=== PATIENT | male | born 1940 | race Caucasian/White ===

== ENCOUNTER 2019-02-07 05:07 | Inpatient (IN) ==
--- NOTE | 2019-01-09 10:18 | PAT Medication Instructions ---
Medication Instructions Date of Service January 09, 2019 Home Medications celecoxib [Celebrex] 200 mg PO BID glimepiride 2 mg PO QAM irbesartan 300 mg PO QPM metformin 1,000 mg PO BIDM simvastatin 20 mg PO PM ASK your surgeon for instructions celecoxib [Celebrex] 200 mg PO BID DO NOT take the morning of surgery metformin 1,000 mg PO BIDM glimepiride 2 mg PO QAM Take morning of surgery NOTHING TO EAT OR DRINK AFTER MIDNIGHT Take evening before surgery metformin 1,000 mg PO BIDM simvastatin 20 mg PO PM irbesartan 300 mg PO QPM Other Notes If you have any questions please call us at [phone] or [phone] or [phone] or [phone]
--- NOTE | 2019-01-09 10:18 | Anesthesiology Consultation ---
Date of Service January 09, 2019 Assessment & Plan (1) Encounter for pre-operative examination: - No previous anesthesia records available. Chart Review Chart Review: Pending: Refer to Additional Notes / Consult section (Patient is of acceptable risk for surgery, pending medical preoperative evaluation from PCP) and Patient seen in Pre Admission Testing Consults Requested medical (Dr. Oconnor (02/02)) Teaching & Discussion Pre-Anesthesia Teaching/Discussion Notes: Instructed NPO after midnight before surgery, except medications with 15 cc of water. Medication instructions provided according to the PAT guidelines. History Surgery Operation Date: 02/07/19 09:15 Proposed Procedures p Right Anterior Total Hip Arthroplasty - Floyd Lee, Height/Weight Height: 5 ft 9 in Weight: 92.4 kg Allergies Allergy/AdvReac Type Severity Reaction Status Date / Time No Known Allergies Allergy Verified 01/02/19 11:51 Medications Home Medications Medication Instructions Recorded Confirmed Last Taken celecoxib [Celebrex] 200 mg PO BID 01/02/19 01/02/19 Unknown glimepiride 2 mg PO QAM 01/02/19 01/02/19 Unknown irbesartan 300 mg PO QPM 01/02/19 01/02/19 Unknown metformin 1,000 mg PO BIDM 01/02/19 01/02/19 Unknown simvastatin 20 mg PO PM 01/02/19 01/02/19 Unknown Past Medical History Medical History Cataract BOTH EYES Diabetes mellitus, type 2 Diabetic retinal edema BOTH EYES Hyperlipidemia Hypertension Osteoarthritis Exercise / Class Metabolic Activity II 4-5 Yardwork/Stairs/Walk up hill (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 Denies CP or SOB. ) Past Surgical History Surgical History Hx of hernia repair RIGHT INGUINAL Past Anesthesia History No Hx of Anesthesia Complications and No Family Hx of Anesthesia Complications History of PONV No Hx of PONV and No Hx of Motion Sickness Social History Smoking Status: Never smoker Do You Dip or Chew Tobacco: No Hx Alcohol Use: No Hx Substance Use: No Review of Systems Patient denies chest pain, shortness of breath, dyspnea on exertion, reflux, cough, wheezing, palpitations. +Joint Pain (Hip) Physical Exam Vital Signs BP: 170/77 - patient is anxious and forgot to take BP meds last night P: 65 R: 18 T: 98.0 SPO2: 96% on RA ENMT Mouth: + poor dentition Thyromental Distance: > or= 3.5 Finger Breadths (3.5) Mallampati Class: I Neck normal visual inspection; neck extension not limited Respiratory normal respiratory effort Auscultation: lungs clear to auscultation bilaterally Cardiovascular Rate/Rhythm: regular rate and regular rhythm Heart Sounds: no murmur Vessels: + carotid bruit (? carotid on right) Neurologic moves all extremities Psychiatric Orientation: alert and oriented x 3 Testing Laboratory Results 01/09/19 11:25 01/09/19 11:25 PT 10.2 Seconds (9.0-12.0) 01/09/19 11:25 INR 1.0 (0.9-1.1) 01/09/19 11:25 APTT 26.5 Seconds (21.0-31.0) 01/09/19 11:25 Hemoglobin A1c 6.8 % (4.5-5.6) H 01/09/19 11:25 Urine Color Yellow 01/09/19 11:25 Urine Appearance Clear (Clear) 01/09/19 11:25 Urine pH 5.0 (4.5-7.5) 01/09/19 11:25 Ur Specific Hoyt 1.020 (1.000-1.030) 01/09/19 11:25 Urine Protein 1+ (Negative) H 01/09/19 11:25 Urine Glucose (UA) Negative (Negative) 01/09/19 11:25 Urine Ketones Trace (Negative) H 01/09/19 11:25 Urine Nitrite Negative (Negative) 01/09/19 11:25 Ur Leukocyte Esterase Negative (Negative) 01/09/19 11:25 Urine WBC (Auto) 1-5 /hpf (0-5) 01/09/19 11:25 Urine RBC (Auto) 0-4 /hpf (0-4) 01/09/19 11:25 U Hyaline Cast (Auto) 0 /lpf (0-5) 01/09/19 11:25 U Epithel Cells (Auto) 5-10 /lpf (0-5) H 01/09/19 11:25 Urine Bacteria (Auto) Negative (Negative) 01/09/19 11:25 Blood Type O Positive 01/09/19 11:25 Antibody Screen NEGATIVE 01/09/19 11:25 Electrocardiogram Date: 01/09/19 Findings: + NSR @ (78) Chest X-Ray Date: 01/09/19 Findings: + NAD
--- NOTE | 2019-01-09 11:56 | XRay Report ---
XR chest Pre-admission PA/Lat HISTORY: Preop. COMPARISON: None. FINDINGS: A few small linear densities within the right middle lobe and lingula suggesting scarring o r atelectasis. Otherwise, the lungs are clear. No pleural effusions. No pneumothorax. The heart is no rmal in size. IMPRESSION: No acute process. Electronically signed by: Junaid Peguero M.D. 01/09/2019 11:55 AM
[2019-01-09 12:56] LABS: Basophils # (auto) 0.04 K/uL (0-0.2); Basophils % (auto) 0.4 %; Eosinophils # (auto) 0.12 K/uL (0-0.5); Eosinophils % (auto) 1.3 %; Hematocrit (blood only) 34.1 % (42-52); Hemoglobin 11.4 g/dL (14.0-18.0); Immature Granulocytes # (auto) 0.03 K/uL (0.00-0.02); Immature Granulocytes % (auto) 0.3 %; Lymphocytes # (auto) 2.38 K/uL (1.2-3.4); Lymphocytes % (auto) 26.4 %; Mean Corpuscular Hemoglobin 30.6 pg (25-34); Mean Corpuscular Hgb Conc 33.4 g/dL (32-36); Mean Corpuscular Volume 91.4 fL (80-100); Monocytes # (auto) 1.25 K/uL (0.11-0.59); Monocytes % (auto) 13.8 %; Neutrophils # (auto) 5.21 K/uL (1.4-6.5); Neutrophils % (auto) 57.8 %; Platelet Count 289 K/uL (130-400); RDW Coefficient of Variation 13.3 % (11.5-14.5); RDW Standard Deviation 44.3 fL (36.4-46.3); Red Blood Count 3.73 M/uL (4.7-6.1); White Blood Count 9.03 K/uL (4.8-10.8)
[2019-01-09 13:09] LABS: Partial Thromboplastin Time 26.5 Seconds (21.0-31.0); Prothrombin Time 10.2 Seconds (9.0-12.0)
[2019-01-09 13:15] LABS: Albumin Level 4.2 gm/dl (3.4-5.0); BUN Creatinine Ratio 17.7 (10-20); Calcium 9.4 mg/dl (8.5-10.1); Creatinine Clr Calc Pharmacy 56.9 ml/min; Est GFR (Non-African American) 56.1; Potassium 4.4 mmol/L (3.5-5.1)
[2019-01-09 13:16] LABS: Estimated Average Glucose 148 mg/dl; Hemoglobin A1C 6.8 % (4.5-5.6)
[2019-01-09 13:20] LABS: Appearance Urine Clear (Clear); Bacteria Urine Automated Negative (Negative); Bilirubin Urine Negative (Negative); Blood Urine Negative (Negative); Cast Urine Automated 0 /lpf (0-5); Color Urine Yellow; Glucose Urine UA Negative (Negative); Ketones Urine Trace (Negative); Leukocyte Esterase Urine Negative (Negative); Nitrite Urine Negative (Negative); Protein Urine 1+ (Negative); RBC Urine Automated 0-4 /hpf (0-4); Urobilinogen Urine Negative (Negative)
--- NOTE | 2019-02-06 13:34 | History & Physical Report ---
Date of Service February 06, 2019 Assessment & Plan (1) Degenerative joint disease of right hip: I have indicated the patient for right anterior total hip replacement. The risks, benefits and complications of surgery were explained to the patient which include but not limited to infection, acute blood loss, DVT/PE, injury to nerves, vessels, bone, soft tissue, arthrofibrosis, chronic pain, failure of the prosthesis, hip dislocation, leg length discrepancy, need for additional surgery, cardiac and pulmonary events and . The patient wished to proceed with surgery and informed consent was obtained at this time. We will plan for 81mg ASA BID post-operatively for DVT prophylaxis. Upon discharge the patient will be discharged home with home health services. Appropriate clearances by PCP were obtained. History of Present Illness Chief Complaint: Right hip pain/djd Primary Care Provider: Armin Oconnor MD The patient is a 78 year old male who presents with complaints of severe right hip pain and DJD. The patient has failed outpatient conservative treatments to this point which included NSAIDs, IA corticosteroid inj, home exercise/walking program. The patient's pain and limited function have progressed to the point where they severely hinder their activities of daily living and they no longer tolerate exercise programs. They are requesting to proceed with total hip replacement surgery. Allergies Allergy/AdvReac Type Severity Reaction Status Date / Time No Known Allergies Allergy Verified 02/07/19 05:31 Home Medications Home Medications Medication Instructions Recorded Confirmed Type celecoxib [Celebrex] 200 mg PO BID 01/02/19 02/07/19 History glimepiride 2 mg PO QAM 01/02/19 02/07/19 History irbesartan 300 mg PO QPM 01/02/19 02/07/19 History metformin 1,000 mg PO BIDM 01/02/19 02/07/19 History simvastatin 20 mg PO PM 01/02/19 02/07/19 History Past Med/Surg History Medical History Cataract BOTH EYES Diabetes mellitus, type 2 Diabetic retinal edema BOTH EYES Hyperlipidemia Hypertension Osteoarthritis Surgical History Hx of hernia repair RIGHT INGUINAL Social History Preferred Language: Greenlandic Communication Ability: Effective Beliefs That Will Affect Care: None Current Living Situation: Alone Feels Safe at Home: Yes Safety Concerns: Feels Safe At This Time Smoking Status: Never smoker Do You Dip or Chew Tobacco: No ; Second Hand Expos ure: No ; Hx Alcohol Use: No Hx Substance Use: No Review of Systems Review of Systems: All systems reviewed & are unremarkable except as noted in HPI & below Constitutional: as per Subjective / HPI Physical Exam Physical Exam: RLE NVSI +EHL/FHL/TA/GS SILT grossly, +2 DP pulse, compartments soft NT, limited painful ROM of the hip, antalgic gait. Constitutional: WD/WN, vitals as above Eyes: PERRL, conjunctivae normal, anicteric sclerae ENMT: external ear and nose normal, oropharynx normal Neck: trachea midline, no thyromegaly Respiratory: normal respiratory effort, lungs clear to auscultation Cardiovascular: RRR, no murmur, no edema Gastrointestinal (Abdomen): normal bowel sounds, soft, nontender, no hepatosplenomegaly Musculoskeletal: no cyanosis or clubbing, extremities motor strength 5/5 Skin: no rashes, warm and dry Neurologic: patellar DTR's 2+ bilat, sensation intact Psychiatric: A+Ox3, euthymic affect Lymphatic: no cervical or axillary lymphadenopathy Results & Data Diagnostic Findings Multiple views of the hip demonstrates severe DJD with complete loss of the joint space. +osteophytes, +sclerosis, +subchondral cysts.
[2019-02-07] MEDS ORDERED: CEFAZOLIN 2000MG 2,000 MG/15 ML SYR IV SCH (06:00)
[2019-02-07] MEDS ORDERED: ROPIVACAINE 0.5% HCL/PF 150 MG, BUPIVACAINE 0.5% MPF 30 ML, EPINEPHrine 30MG/30ML (OR U... INSTIL SCH (06:00)
[2019-02-07] MEDS ORDERED: METOCLOPRAMIDE HCL 10 MG TABLET PO SCH (06:00)
[2019-02-07] MEDS ORDERED: GABAPENTIN 300 MG CAP PO SCH (06:00)
[2019-02-07] MEDS ORDERED: dexAMETHasone 4 MG TAB PO SCH (06:00)
[2019-02-07] MEDS ORDERED: LR 500ML BOLUS, THEN 15ML/HR IV SCH (06:00)
[2019-02-07] MEDS ORDERED: FAMOTIDINE 20 MG TAB PO SCH (06:00)
[2019-02-07] MEDS ORDERED: ACETAMINOPHEN 500 MG TAB PO SCH (06:00)
[2019-02-07] MEDS ORDERED: CeleBREX 200 MG CAP PO SCH (06:00)
[2019-02-07] MEDS ORDERED: BUPIVACAINE 0.5 % 5 MG/1 ML PF 10ML VIAL ONE (06:24)
[2019-02-07] MEDS ORDERED: fentaNYL citrate 100 MCG/2 ML VIAL ONE (06:48)
[2019-02-07] MEDS ORDERED: MIDAZOLAM HCL 1 MG/ML 2ML VIAL ONE (06:48)
[2019-02-07] MEDS ORDERED: KETOROLAC 30 MG/ML VIAL IV PRN (06:56)
[2019-02-07] MEDS ORDERED: ATROPINE SULFATE 0.1 MG/ML 10ML SYR IV PRN (06:56)
[2019-02-07] MEDS ORDERED: BACITRACIN INJ 50,000 UNIT VIAL ONE (06:56)
[2019-02-07] MEDS ORDERED: ORTHO JOINT ANESTHETIC ONE (06:56)
[2019-02-07] MEDS ORDERED: ONDANSETRON INJ 2 MG/ML 2 ML VIAL IV PRN ×2 (06:56→10:59)
[2019-02-07] MEDS ORDERED: PHENYLEPHRINE 100MCG/ML 5ML SYR IV PRN (06:56)
[2019-02-07] MEDS ORDERED: HYDROmorphone INJ 1 MG/ML SYRINGE IV PRN (06:56)
[2019-02-07] MEDS ORDERED: ePHEDrine sulfate 50 MG/ML AMP IV PRN (06:56)
--- NOTE | 2019-02-07 07:06 | History & Physical Bridge Note ---
Date of Service February 07, 2019 History & Physical Bridge Note I have examined the patient, reviewed the History & Physical and in the interval since the performance of the History & Physical I have noted the following changes of clinical significance: no changes noted
[2019-02-07] MEDS ORDERED: TRANEXAMIC ACID 1,000 MG in 0.9 % SODIUM CHLORIDE 100 ML IV ONE (07:45)
[2019-02-07] MEDS ORDERED: PROPOFOL IV EMULSION 10 MG/ML 20 ML VIAL IV ONE (08:53)
[2019-02-07] MEDS ORDERED: LIDOCAINE HCL 2% 2 ML VIAL/AMP(20MG/ML) INFIL ONE (08:53)
--- NOTE | 2019-02-07 09:02 | Post Operative Brief Note ---
Immediate Post Op Note v1 Date of Surgery February 07, 2019 Pre & Post Diagnosis Operation Date: 02/07/19 07:15 Pre-Op Diagnosis: RIGHT HIP OSTEOARTHRITIS Post-Op Diagnosis: RIGHT HIP OSTEOARTHRITIS Procedure Operation Date: 02/07/19 07:15 Actual Procedures p Right Anterior Total Hip Arthroplasty(Right) - Floyd Lee DO Surgeon Floyd Lee DO Cut Off Worker Cristhian Mosquera Estimated Blood Loss 225 Findings Consistent with Post-Op Diagnosis Fluids 1500 cc LR Specimens femoral head Drains Hemovac Drain Anesthesia Type Spinal MAC Complications none Disposition Disposition: Recovery Room Overlapping Procedure I was present for: the critical portions of procedure. I was immediately available: during the entire case. Back up surgeon: was not required during procedure.
--- NOTE | 2019-02-07 09:06 | Fluoroscopy Report ---
FL hip RT 1V CLINICAL HISTORY: RIGHT ANTERIOR HIP COMPARISON STUDY: None. FLUOROSCOPY TIME: 48 seconds. FLUOROSCOPIC IMAGES: 2. FINDINGS: These images demonstrate anatomic alignment of the total right hip arthroplasty with acetab ular screw. No fracture is identified. There are no unexpected radiopaque foreign bodies. IMPRESSION: Expected findings during total right hip arthroplasty. Electronically signed by: Marcus Kiran M.D. 02/07/2019 9:05 AM
--- NOTE | 2019-02-07 09:27 | Operative Report ---
Post Operative Report Pre & Post Diagnosis Operation Date: 02/07/19 07:15 Pre-Op Diagnosis: RIGHT HIP OSTEOARTHRITIS Post-Op Diagnosis: RIGHT HIP OSTEOARTHRITIS Procedure Operation Date: 02/07/19 07:15 Actual Procedures p Right Anterior Total Hip Arthroplasty(Right) - Floyd Lee DO Surgeon Floyd Lee DO Clinical Informatics Educator Cristhian Mosquera Estimated Blood Loss 225 Findings Consistent with Post-Op Diagnosis Fluids 1500 cc LR Specimens Femoral head Anesthesia Type Spinal MAC Disposition Disposition: Recovery Room Indications The patient is a 72-year-old male who presents with severe progressive right hip DJD who has failed outpatient conservative treatments. I indicated the patient for a anterior total hip replacement and the risks and benefits were explained in detail which include but not limited to infection, bleeding, blood clot, damage to surrounding bone, nerves, vessels, soft tissue, hip dislocation, failure of the prosthesis, leg length discrepancy, need for additional surgery and . The patient agreed to proceed with replacement of the hip and informed consent was obtained. Appropriate clearances were obtained. Description of Procedure COMPONENTS USED: Torres & NephEpoqueology hip system: Acetabulum size 54, femur size 6 standard offset, femoral head 36+0, liner 3654, acetabular screw 25 mm x 1. DESCRIPTION OF PROCEDURE: Following satisfactory spinal anesthesia, the patient was placed supine on the OR table. The left leg was placed in the well leg james and the right leg in the traction device. The right leg was prepared with ChloraPrep and draped sterilely. A surgical timeout was performed, patient identified and site chris verified. Appropriate antibiotics were given. A standard anterior approach in the interval between the sartorius and tensor muscles was performed. Dissection was carried down through subcutaneous tissues. Electrocautery was utilized for hemostasis. Circumflex femoral vessels were identified, tied and ligated. The anterior capsular fat pad was removed and the capsulotomy was performed revealing the arthritic femoral neck and head. A femoral neck cut was made with reciprocating saw and the bone fragments removed. The acetabular self-retraining retractor was placed. Acetabular reaming was completed under fluoroscopic guidance, a 54 shell was impacted into an anatomic position and secured with a dome screw. Local anesthetic was placed and following irrigation, the polyethylene liner was placed. The femur was placed into position of external rotation, extension and adduction. Femoral canal was prepared up to the size 6 standard offset. Trial reduction with a +0 neck length head showed good soft tissue tension, leg lengths restored, and good fit and fill of the proximal canal using fluoroscopic landmarks. The hip was dislocated. The trial component was removed. The final implant was placed. The hip was irrigated with sterile saline solution and reduced. A Betadine soak was performed. After 3 minutes, the hip was once more irrigated with copious sterile saline solution with bacitracin. Janet-incisional soft tissue was injected utilizing [place] Orthomix which includes a combination of Ropivicaine 0.5% 150mg, Bupivicaine 0.5%/Epinephrine 1:200,000 30ml, Toradol 30mg, Dexamethasone 4mg, Ketamine 10mg, Clonidine 100mcg and NSS 30ml solution. The capsule was then closed with 1-0 Vicryl interrupted figure of eight sutures. The fascia was closed with a running suture of #1 Vicryl, the subcutaneous tissues with 2-0 Vicryl and the skin with a running subcuticular stitch of 3-0 V-Loc. Dermabond prineo and a dry dressing were applied. The patient tolerated the procedure well and was transported to PACU in stable condition. Due to the complex nature of the procedure, the entire surgery was performed with the operational assistance of Cristhian Mosquera PA-C. The bioinformatics assistant, under direct supervision, was involved in the actual performance of all aspects of the surgical procedure including patient positioning, hemostasis, tissue retraction, instrument management and wound closure. I attest to the content of the Intraoperative Record and any orders documented therein. Any exceptions are noted below.
--- NOTE | 2019-02-07 10:10 | XRay Report ---
SINGLE VIEW PELVIS; SINGLE VIEW RIGHT HIP CLINICAL HISTORY: Postoperative examination. FINDINGS: An AP portable view of the hips and pelvis with a crosstable lateral portable view of the r ight hip are obtained. A bipolar right hip arthroplasty is in near-anatomic alignment. A single corti tristian lag screw transfixes the acetabular cup. No acute fracture is identified. There are expected post operative changes overlying the right hip including subcutaneous gas and soft tissue swelling. Mild a rthritic changes noted in the left hip. Atherosclerotic calcification is seen in the femoral arteries . IMPRESSION: Expected postoperative findings status post right hip arthroplasty. No acute fracture is seen. Electronically signed by: Walker Yang M.D. 02/07/2019 10:08 AM
[2019-02-07] MEDS ORDERED: MAGNESIUM HYDROXIDE SUSP 30 ML UDC PO PRN (10:59)
[2019-02-07] MEDS ORDERED: METOCLOPRAMIDE HCL INJ 5 MG/ML 2 ML VIAL IV PRN (10:59)
[2019-02-07] MEDS ORDERED: bisacodyL 10 MG SUPP PR PRN (10:59)
[2019-02-07] MEDS ORDERED: NALOXONE HCL 0.4 MG/1 ML VIAL/CARP IV PRN (10:59)
[2019-02-07] MEDS ORDERED: HYDROmorphone INJ 0.5 MG/0.5 ML SYR IV PRN (10:59)
--- NOTE | 2019-02-07 11:08 | Anesthesiology Progress Note ---
Date of Service February 07, 2019 Anesthesia Post Procedure Vital Signs Vital Signs: Temp Pulse Pulse Resp BP BP Pulse Ox 02/07/19 10:35 61 19 120/67 95 02/07/19 10:20 59 L 15 130/66 93 02/07/19 10:05 36.5 C 59 L 20 131/70 95 02/07/19 09:55 60 20 124/68 95 02/07/19 09:45 61 19 131/70 95 02/07/19 09:35 62 17 122/70 96 02/07/19 09:29 36.6 C 62 21 126/66 97 02/07/19 05:35 37 C 81 20 154/89 H 97 Pain Intensity Right Hip: Pain Intensity: 10 Transfer of Care Handoff Completed per policy Notes Mental Status: alert / awake / arousable Patient Amnestic to Procedure: Yes Nausea / Vomiting: adequately controlled Pain: adequately controlled Airway Patency, RR, SpO2: stable & adequate BP & HR: stable & adequate Hydration State: stable & adequate Neuraxial Anesthesia: was administered and sensory block is resolving Anesthetic Complications: no major complications apparent
[2019-02-07] MEDS ORDERED: PHARMACY GLYCEMIC MGMT CONSULT PRN (11:09)
[2019-02-07] MEDS ORDERED: NovoLIN-N (NPH) PER UNIT CHARGE SQ ONE (12:00)
--- NOTE | 2019-02-07 13:05 | Pharmacy Report ---
Glycemic Control Consultation - Date of Service February 07, 2019 - Scope Scope: Glycemic Pharmacist consulted by Dr Lee on 02/07/19 for glycemic control and to write orders per [facility] inpatient glycemic control protocol - Objective Weight: 90.7 kg Accuchecks BSG (last 24hrs): 02/07/19 02/07/19 02/07/19 05:35 09:35 12:15 POC Glucose 110 H 169 H 176 H HbA1c: Hemoglobin A1c 6.8 % (4.5-5.6) H 01/09/19 11:25 - Recent Pertinent Medications Outpatient Anti-diabetic Regimen: * Glimepiride 2 mg PO qam * Metformin 1 g PO BIDM * A1c = 6.8 % (01/09/19) Risk Factors for Insulin Resistance: * Steroids: dexamethasone 4 mg (orthomix) + 8 mg PO perioperatively * Recent Surgery: Right total hip arthroplasty * Diet: T2DM - Assessment & Plan Assessment & Plan: ASSESSMENT: * Patient is POD #0 s/p right total hip arthroplasty * Past medical history includes type 2 diabetes (controlled with PO antidiabetic drugs), hypertension, hyperlipidemia, cataracts, and osteoarthritis * BSG postop was 176 mg/dL (received perioperative dexamethasone 8 mg PO and 4 mg via orthomix infiltration) * Will cover with 32 units of NPH (0.35 u/kg) PLAN FOR INPATIENT GLYCEMIC CONTROL: * Holding outpatient oral diabetes medications * May consider initiation prior to discharge * Basal insulin * NPH 32 units x 1 dose to cover for dexamethasone-induced hyperglycemia * Bolus insulin - in between weight/stress of 2 and 3 * NovoLog per scale ACHS or Q6hrs while NPO * Goal Range: Low 110 mg/dL - High 140 mg/dL * Correction Factor: 25 mg/dL/unit * Nutritional / Prandial insulin per carb ratio of 1 unit per 7 grams CHO consumed * Please note that the plan above was derived based on current level of insulin resistance and hospital stress. These recommendations are appropriate for inpatient admission only. Plan of care upon discharge will need to be reassessed to avoid potential outpatient hypo/hyperglycemia. Thank you.
[2019-02-07] MEDS: INSULIN ASPART 100 UNITS/ML 3 ML PEN SC SCH ×3 (13:40→21:39)
[2019-02-07] MEDS: ACETAMINOPHEN 500 MG TAB PO SCH ×2 (13:41→21:17)
[2019-02-07] MEDS ORDERED: INFLUENZA VIRUS QUAD VACCINE 0.5 ML SYR IM ONE (14:15)
[2019-02-07] MEDS ORDERED: INFLUENZA ADMINISTRATION CHARGE ONE (14:15)
[2019-02-07] MEDS: SODIUM CHLORIDE 0.9% 1000ML 1,000 ML IV SCH (14:45)
[2019-02-07] MEDS: CEFAZOLIN 2000MG 2,000 MG/15 ML SYR IV SCH ×2 (16:06→22:14)
[2019-02-07] MEDS: OXYCODONE HCL IR 5 MG TAB (IMMEDIATE RELEASE) PO PRN ×2 (16:06→21:18)
[2019-02-07] MEDS ORDERED: METFORMIN HCL 500 MG TAB PO SCH (17:00)
--- NOTE | 2019-02-07 17:37 | Orthopedic Progress Note ---
Date of Service February 07, 2019 Assessment & Plan (1) Degenerative joint disease of right hip: s/p R anterior CORI -ancef x 24 -DVT ppx: SCDs, TEDs, ASA 81mg BID -WBAT RLE -PT/OT -PO XR demonstrates a well aligned well fixed prosthesis without fracture/dislocation -am labs -DC planning Subjective Post Operative Progress Note Patient seen sitting up in bed, comfortable, denies complaints, pain well controlled, no acute issues. Review of Systems Review of Systems: All systems reviewed & are unremarkable except as noted in HPI & below Constitutional: as per Subjective / HPI Physical Exam Physical Exam: RLE NVSI +EHL/FHL/TA/GS SILT grossly, +2 DP pulse, compartments soft NT, dressing cdi. Constitutional: WD/WN, vitals as above Results & Data Vital Signs (Past 12 Hours) Vital Signs Temp Pulse Pulse Resp BP Pulse Ox 02/07/19 14:58 37.0 C 80 16 110/69 96 02/07/19 13:41 36.6 C 72 16 129/72 96 02/07/19 12:35 73 16 134/69 97 02/07/19 11:52 60 16 154/76 H 97 02/07/19 11:16 61 16 139/73 96 02/07/19 11:01 36.7 C 63 14 128/73 94 02/07/19 10:35 61 19 120/67 95 02/07/19 10:20 59 L 15 130/66 93 02/07/19 10:05 36.5 C 59 L 20 131/70 95 02/07/19 09:55 60 20 124/68 95 02/07/19 09:45 61 19 131/70 95 02/07/19 09:35 62 17 122/70 96 02/07/19 09:29 36.6 C 62 21 126/66 97
[2019-02-07] MEDS ORDERED: INSULIN PROTOCOL GOAL RANGE ONE (20:40)
[2019-02-07] MEDS ORDERED: INSULIN HUMAN REGULAR PER UNIT 5 UNITS in SYRINGE 0 ML IV ONE (21:00)
[2019-02-07] MEDS ORDERED: ASPIRIN 81 MG ECTAB PO SCH (21:00)
[2019-02-07] MEDS ORDERED: INSULIN HUMAN REGULAR IV BOLUS 5 UNITS in SYRINGE 0 ML IV ONE (21:00)
[2019-02-07] MEDS ORDERED: INSULIN REGULAR 250 UNITS in SODIUM CHLORIDE 0.9% 247.5 ML IV SCH (21:00)
[2019-02-07] MEDS ORDERED: IRBESARTAN 150 MG TAB PO SCH (21:00)
[2019-02-07] MEDS: DOCUSATE SODIUM 100 MG CAP PO SCH (21:18)
[2019-02-07] MEDS: SIMVASTATIN 20 MG TAB PO SCH (21:18)
[2019-02-07] MEDS: SENNA 8.6 MG TAB PO SCH (21:18)
[2019-02-08] MEDS ORDERED: DC IV INSULIN INFUSION 1 EA DEVI SCH
[2019-02-08] MEDS: INSULIN ASPART 100 UNITS/ML 3 ML PEN SC SCH ×6 (00:11→21:35)
[2019-02-08] MEDS ORDERED: CARBOHYDRATES FOR HYPOGLYCEMIA PO PRN (00:30)
[2019-02-08] MEDS ORDERED: GLUCOSE 40% GEL 15 GM TUBE PO PRN (00:30)
[2019-02-08] MEDS ORDERED: DEXTROSE 50% 50 ML SYRINGE IV PRN (00:30)
[2019-02-08] MEDS ORDERED: GLUCAGON FOR INJ 1 MG VIAL IM PRN (00:30)
[2019-02-08] MEDS ORDERED: GLUCOSE 10 TABS/TUBE PO PRN (00:30)
[2019-02-08] MEDS: SODIUM CHLORIDE 0.9% 1000ML 1,000 ML IV SCH (01:07)
[2019-02-08 05:44] LABS: Basophils # (auto) 0.01 K/uL (0-0.2); Basophils % (auto) 0.1 %; Eosinophils # (auto) 0.02 K/uL (0-0.5); Eosinophils % (auto) 0.1 %; Hematocrit (blood only) 22.4 % (42-52); Hemoglobin 7.5 g/dL (14.0-18.0); Immature Granulocytes # (auto) 0.07 K/uL (0.00-0.02); Immature Granulocytes % (auto) 0.5 %; Lymphocytes # (auto) 1.83 K/uL (1.2-3.4); Lymphocytes % (auto) 12.2 %; Mean Corpuscular Hemoglobin 30.2 pg (25-34); Mean Corpuscular Hgb Conc 33.5 g/dL (32-36); Mean Corpuscular Volume 90.3 fL (80-100); Mean Platelet Volume 10.4 fL (7.4-10.4); Monocytes # (auto) 1.99 K/uL (0.11-0.59); Monocytes % (auto) 13.3 %; Neutrophils # (auto) 11.03 K/uL (1.4-6.5); Neutrophils % (auto) 73.8 %; Platelet Count 233 K/uL (130-400); RDW Coefficient of Variation 13.3 % (11.5-14.5); RDW Standard Deviation 43.7 fL (36.4-46.3); Red Blood Count 2.48 M/uL (4.7-6.1); White Blood Count 14.95 K/uL (4.8-10.8)
[2019-02-08] MEDS: ACETAMINOPHEN 500 MG TAB PO SCH ×3 (05:44→21:20)
[2019-02-08 06:05] LABS: BUN Creatinine Ratio 25.8 (10-20); Calcium 7.9 mg/dl (8.5-10.1); Est GFR (African American) 56.2; Est GFR (Non-African American) 48.5
[2019-02-08 06:10] LABS: RBC Morphology Unremarkable
[2019-02-08] MEDS: MULTIVITAMIN TAB PO SCH (07:26)
[2019-02-08] MEDS: DOCUSATE SODIUM 100 MG CAP PO SCH ×2 (07:26→21:21)
[2019-02-08] MEDS: ASPIRIN 81 MG ECTAB PO SCH ×2 (07:26→21:20)
[2019-02-08] MEDS ORDERED: SODIUM CHLORIDE 0.9% 250 ML IV PRN (08:17)
--- NOTE | 2019-02-08 08:43 | Anesthesiology Progress Note ---
Date of Service February 08, 2019 Anesthesia Post Procedure Vital Signs Vital Signs: Temp Pulse Pulse Resp BP Pulse Ox 02/08/19 07:01 36.8 C 69 16 105/56 L 95 02/08/19 04:05 36.6 C 74 16 107/60 97 02/08/19 00:01 36.7 C 67 16 104/61 95 02/07/19 21:13 75 17 107/61 95 02/07/19 19:05 36.8 C 75 18 113/66 96 02/07/19 14:58 37.0 C 80 16 110/69 96 02/07/19 13:41 36.6 C 72 16 129/72 96 02/07/19 12:35 73 16 134/69 97 02/07/19 11:52 60 16 154/76 H 97 02/07/19 11:16 61 16 139/73 96 02/07/19 11:01 36.7 C 63 14 128/73 94 02/07/19 10:35 61 19 120/67 95 02/07/19 10:20 59 L 15 130/66 93 02/07/19 10:05 36.5 C 59 L 20 131/70 95 02/07/19 09:55 60 20 124/68 95 02/07/19 09:45 61 19 131/70 95 02/07/19 09:35 62 17 122/70 96 02/07/19 09:29 36.6 C 62 21 126/66 97 Pain Intensity Right Hip: Pain Intensity: 3 Notes Mental Status: alert / awake / arousable and participated in evaluation Patient Amnestic to Procedure: Yes Nausea / Vomiting: adequately controlled Pain: adequately controlled Airway Patency, RR, SpO2: stable & adequate BP & HR: stable & adequate Hydration State: stable & adequate Neuraxial Anesthesia: was administered and sensory block resolved Anesthetic Complications: no major complications apparent and Pt Satisfied with anesthetic care
[2019-02-08] MEDS ORDERED: DiphenhydrAMINE HCL 50 MG/ML VIAL IV SCH (09:00)
[2019-02-08] MEDS ORDERED: GLIMEPIRIDE 2 MG TAB PO SCH ×2 (09:00)
[2019-02-08] MEDS: METFORMIN HCL 500 MG TAB PO SCH ×2 (09:16→17:54)
--- NOTE | 2019-02-08 09:27 | Consultation ---
Date of Consultation February 08, 2019 Assessment & Plan (1) Degenerative joint disease of right hip: POD #[address] Lee EBL 225ml tolerated procedure well pain/wound management per ortho activity and therapy as directed by ortho incentive spirometry ASA bid for dvt prophylaxis per ortho (2) Diabetes mellitus, type 2: A1C 6.9 hyperglycemic post operatively 2/2 steroid pt refusing any future insulin re-initiate metformin, but hold glimepiride for now monitor Creatinine (3) Anemia: 2/2 to post op state H/H 7.5/22.4 pre op H/H 10.7/37 9/16 1 unit PRBC ordered repeat H/H in a.m. (4) CKD (chronic kidney disease) stage 3, GFR 30-59 ml/min: mild renal insufficiency baseline cr 1.2 bun/cr 36/1.40 likely in setting of post op state, abl anemia monitor bmp 1 unit PRBC ordered give additional 500ml IVF x 1 encourage po fluids (5) Hypertension: BP on lower side given anemia hold irbesartan for now monitor (6) Hyperlipidemia: continue statin (7) DVT prophylaxis: SCD/TEDS, ASA BID per ortho Disposition: per primary service, recommend patient follow Dr. Lee recommendation of hospitalization for additional night to follow H/H, renal fxn, bsg, therapy Follow up: PCP Dr. Oconnor upon discharge Patient was seen and examined in collaboration with Dr. Avila, please see addendum Supervising Physician Co-Signing Physician Notes I saw this patient with the physician junior sales assistant, I participated in the history, physical, review of systems, and physical exam. I reviewed the medications with the patient and the physician junior sales assistant and helped reconcile the medications. I helped take a detailed family and social history as well. I formulated the assessment and plan personally with the physician junior sales assistant and went over it with the patient. ROS-No Headache, No Visual Changes, No Nausea, No Vomiting, No Fever, No Chills, No Neck Pain or Stiffness, No Chest Pain, No Palpitations, No SOB, No FRANCO, No Cough, No Sputum, No Wheezing, No Abdominal Pain, No Diarrhea, No Hematemesis, No Hemoptysis, No Unexpected Weight Loss, No Flank pain, No Melena, No Hematochezia, No Frequency, No Urgency, No Burning, No Hematuria, No Rashes, No Diaphoresis. Appetite is Normal Physical Exam Gen-AAO x 3, NAD, Afebrile Head-NCAT, EOMI, PERRLA, Anicteric Sclera, No Posterior Pharyngeal Erythema Neck-Supple, No JVD, No Thyromegaly, No Masses, No LAD, No Bruits Lungs-Clear to Auscultation Bilaterally, No Rales, No Rhonchi, No Wheezing, No Crepitus Chest-No S4, +S1, +S2, No S3, No Murmurs, No Rubs, No Gallops, No Ectopy Abdomen-Soft, Bowel Sounds Present, Non Tender, Non Distended, No Hepatomegaly, No Splenomegaly, No Palpable Masses, No Rebound, No Rigidity, No Guarding Musculoskeletal-Full Range of Motion Bilaterally, No CVAT Extremities-No Cyanosis, No Clubbing, No Edema Nuero-Cranial Nerves II-XII grossly intact, Motor WNL, DTRs WNL, Strength WNL, Non Focal Psych-Normal Mood History of Present Illness Requesting Physician: Dr. Lee Reason for Consultation: Postop medical management, diabetes, anemia Attending Physician: Floyd Lee, History of Present Illness This is a 78-year-old male who has significant past medical history of T2DM, HTN, HLD, NPDR, anemia who presents to [facility] for elective right CORI. On 02/07/2019 patient underwent anterior right CORI by Dr. Lee. His postoperative course has been complicated by hyperglycemia in setting of preoperative Decadron and ABL anemia. Last evening he had blood sugars in 300s. Was given IV and SQ insulin. Blood sugar improved this morning and was in 60s. Before breakfast BSG was 125. Pt did not want to be given insulin last night, but eventually opted for it. Is upset his blood sugar was brought down into the 60s although he was asymptomatic. States he will not take insulin again. This a.m. he was dizzy and presyncopal upon standing; therefore therapy was aborted. He denies f/c/s, dizziness, ADHIKARI, vision changes, chest pain, sob, cough, palpitations, n/v/d, dysuria, hematuria. No BM since surgery but he is passing flatus. Tolerated oral intake with good appetite. Allergies Allergy/AdvReac Type Severity Reaction Status Date / Time No Known Allergies Allergy Verified 02/07/19 05:31 Home Medications Home Medications Medication Instructions Recorded Confirmed Type celecoxib [Celebrex] 200 mg PO BID 01/02/19 02/07/19 History glimepiride 2 mg PO QAM 01/02/19 02/07/19 History irbesartan 300 mg PO QPM 01/02/19 02/07/19 History metformin 1,000 mg PO BIDM 01/02/19 02/07/19 History simvastatin 20 mg PO PM 01/02/19 02/07/19 History acetaminophen [Tylenol Extra 1,000 mg PO Q8 PRN #90 tab 02/07/19 Rx Strength] aspirin [Ecotrin Low Strength] 81 mg PO BID #56 tab 02/07/19 Rx oxycodone 5 mg PO Q6H PRN #30 tab MDD 6 tabs 02/07/19 Rx sennosides [Senokot] 17.2 mg PO HS PRN #28 tab 02/07/19 Rx Patient History Family History Other Diabetes Social History Preferred Language: Albanian Communication Ability: Effective Beliefs That Will Affect Care: None Current Living Situation: Alone Feels Safe at Home: Yes Safety Concerns: Feels Safe At This Time Smoking Status: Never smoker Do You Dip or Chew Tobacco: No ; Second Hand Exposure: No ; Hx Alcohol Use: No Hx Substance Use: No Review of Systems Review of Systems: All systems reviewed & are unremarkable except as noted in HPI & below Physical Exam Physical Exam: Constitutional: WD/WN, Male, vitals as above, NAD, sitting up in bed, pleasant, conversing easily Head: Normocephalic, Atraumatic Eyes: PERRL, conjunctivae normal, anicteric sclerae ENMT: external ear and nose normal, oropharynx normal Neck: trachea midline, no thyromegaly normal visual inspection Respiratory: normal respiratory effort, lungs clear to auscultation, no wheeze, rales, rhonchi. Normal insp/exp effort, no accessory muscle use Cardiovascular: RRR, no murmur, no edema Vessels: no JVD or carotid bruit Chest: normal inspection of chest Abdomen: normal bowel sounds, soft, nontender, no hepatosplenomegaly Musculoskeletal: no cyanosis or clubbing, extremities motor strength 5/5 , R hip incision CDI Skin: no rashes, warm and dry normal turgor Neurologic: PERRL, EOMI, accommodation nl, no face palsy, no dysarthria CN's II-XI intact bilaterally and moves all extremities Psychiatric: A+Ox3, euthymic affect Lymphatic: no cervical or axillary lymphadenopathy : deferred Results & Data Vital Signs (Past 12 Hours) Vital Signs Temp Pulse Resp BP Pulse Ox 02/08/19 07:01 36.8 C 69 16 105/56 L 95 02/08/19 04:05 36.6 C 74 16 107/60 97 02/08/19 00:01 36.7 C 67 16 104/61 95 02/07/19 21:13 75 17 107/61 95 Laboratory Results Short CBC 01/09/19 02/07/19 02/07/19 Range/Units 11:25 05:35 09:35 WBC (4.8-10.8) K/uL Hgb (14.0-18.0) g/dL Hct (42-52) % Plt Count (130-400) K/uL Creatinine 1.24 (0.6-1.4) mg/dl Glucose 94 (70-99) mg/dl POC Glucose 110 H 169 H (70-99) 02/07/19 02/07/19 02/07/19 Range/Units 12:15 17:14 20:34 WBC (4.8-10.8) K/uL Hgb (14.0-18.0) g/dL Hct (42-52) % Plt Count (130-400) K/uL Creatinine (0.6-1.4) mg/dl Glucose (70-99) mg/dl POC Glucose 176 H 367 H* 300 H (70-99) 02/08/19 02/08/19 02/08/19 Range/Units 00:03 00:35 01:06 WBC (4.8-10.8) K/uL Hgb (14.0-18.0) g/dL Hct (42-52) % Plt Count (130-400) K/uL Creatinine (0.6-1.4) mg/dl Glucose (70-99) mg/dl POC Glucose 66 L* 73 86 (70-99) 09/02/08/19 02/08/19 Range/Units 04:07 05:17 05:17 WBC 14.95 H (4.8-10.8) K/uL Hgb 7.5 L (14.0-18.0) g/dL Hct 22.4 L (42-52) % Plt Count 233 (130-400) K/uL Creatinine 1.40 (0.6-1.4) mg/dl Glucose 114 H (70-99) mg/dl POC Glucose 83 (70-99) BMP 02/08/19 05:17 Sodium 138 Potassium 4.0 Chloride 105 Carbon Dioxide 25 BUN 36 H Creatinine 1.40 Glucose 114 H Calcium 7.9 L Diagnostic Findings Hip Xray: IMPRESSION: Expected postoperative findings status post right hip arthroplasty. No acute fracture is seen. Medications Administered Acetaminophen (Tylenol) 1,000 mg PO Q8 CASSIE Stop: 03/09/19 13:59 Last Admin: 02/08/19 05:44 Dose: 1,000 mg Documented by: [id number] Admin: 02/07/19 21:17 Dose: 1,000 mg Documented by: [id number] Admin: 02/07/19 13:41 Dose: 1,000 mg Documented by: [id number] Aspirin (Ecotrin Ectab) 81 mg PO BID CASSIE Stop: 03/10/19 08:59 Last Admin: 02/08/19 07:26 Dose: 81 mg Documented by: [id number] Docusate Sodium (Colace) 100 mg PO BID CASSIE Stop: 03/09/19 20:59 Last Admin: 02/08/19 07:26 Dose: 100 mg Documented by: [id number] Admin: 02/07/19 21:18 Dose: 100 mg Documented by: [id number] Insulin Aspart (Novolog Flexpen) 0 units SC ACHS CASSIE Stop: 03/09/19 11:29 Last Admin: 02/08/19 07:46 Dose: Not Given Documented by: [id number] Admin: 02/07/19 21:39 Dose: 8 units Documented by: [id number] Cosigned by: [id number] Admin: 02/07/19 17:48 Dose: 20 units Documented by: [id number] Cosigned by: [id number] Admin: 02/07/19 13:40 Dose: 9 units Documented by: [id number] Cosigned by: [id number] Irbesartan (Avapro) 300 mg PO QPM CASSIE Stop: 03/09/19 20:59 Last Admin: 02/07/19 21:16 Dose: Not Given Documented by: [id number] Metformin HCl (Glucophage) 1,000 mg PO BIDM CASSIE Stop: 03/10/19 08:59 Last Admin: 02/08/19 09:16 Dose: 1,000 mg Documented by: [id number] Miscellaneous (Carbohydrates For Hypoglycemia) 15 - 30 gm PO UD PRN PRN Reason: Hypoglycemia Treatment Stop: 03/10/19 00:29 Last Admin: 02/08/19 00:20 Dose: 15 gm Documented by: [id number] Multivitamins (Multivitamin Tab) 1 tab PO QAM CASSIE Stop: 03/10/19 08:59 Last Admin: 02/08/19 07:26 Dose: 1 tab Documented by: [id number] Oxycodone HCl (Roxicodone Immediate Rel) 5 - 10 mg PO Q4H PRN PRN Reason: Pain Stop: 02/21/19 10:58 Last Admin: 02/07/19 21:18 Dose: 5 mg Documented by: [id number] Admin: 02/07/19 16:06 Dose: 5 mg Documented by: [id number] Sennosides (Senokot) 17.2 mg PO HS CASSIE Stop: 03/09/19 20:59 Last Admin: 02/07/19 21:18 Dose: 17.2 mg Documented by: [id number] Simvastatin (Zocor) 20 mg PO PM CASSIE Stop: 03/09/19 20:59 Last Admin: 02/07/19 21:18 Dose: 20 mg Documented by: [id number] Discontinued Medications Acetaminophen (Tylenol) 1,000 mg PO PREOP CASSIE Stop: 02/07/19 18:00 Last Admin: 02/07/19 06:13 Dose: 1,000 mg Documented by: [id number] Bacitracin (Bacitracin) Confirm Administered Dose 50,000 units .ROUTE .STK-MED ONE Stop: 02/07/19 06:57 Last Admin: 02/07/19 08:03 Dose: 50,000 units Documented by: [id number] Celecoxib (Celebrex) 200 mg PO PREOP CASSIE Stop: 02/07/19 18:00 Last Admin: 02/07/19 06:13 Dose: 200 mg Documented by: [id number] Dexamethasone (Decadron) 8 mg PO PREOP CASSIE Stop: 02/07/19 18:00 Last Admin: 02/07/19 06:13 Dose: 8 mg Documented by: [id number] Famotidine (Pepcid) 20 mg PO PREOP CASSIE Stop: 02/07/19 18:00 Last Admin: 02/07/19 06:13 Dose: 20 mg Documented by: [id number] Gabapentin (Neurontin) 300 mg PO PREOP CASSIE Stop: 02/07/19 18:00 Last Admin: 02/07/19 06:13 Dose: 300 mg Documented by: [id number] Lactated Ringer's (Lr) 1,000 mls @ 15 mls/hr IV .Q24H ACSSIE Stop: 02/07/19 18:00 Last Infusion: 02/07/19 07:12 Dose: 0 mls/hr Documented by: [id number] Admin: 02/07/19 06:12 Dose: 1,000 mls/hr Documented by: [id number] Cefazolin Sodium (Ancef 2000mg) 2,000 mg in 15 mls @ 3.75 mls/min IV PREOP CASSIE; Protocol Stop: 02/07/19 18:00 Last Admin: 02/07/19 07:12 Dose: 3.75 mls/min Documented by: [id number] Ropivacaine 150 mg/Bupivacaine HCl 30 ml/Epinephrine HCl 0.15 mg/Ketorolac Tromethamine 30 mg/Dexamethasone 4 mg/ Ketamine HCl 10 mg/ Clonidine HCl 100 mcg/ Sodium Chloride 93.35 mls @ 0 mls/hr INSTIL PREOP CASSIE Stop: 02/07/19 06:01 Last Admin: 02/07/19 09:00 Dose: 93.35 mls/hr Documented by: [id number] Tranexamic Acid 1,000 mg/ (Sodium Chloride) 110 mls @ 660 mls/hr IV NOW ONE Stop: 02/07/19 07:54 Last Infusion: 02/07/19 16:47 Dose: 0 mls/hr Documented by: [id number] Admin: 02/07/19 07:51 Dose: 660 mls/hr Documented by: [id number] Tranexamic Acid 1,000 mg/ (Sodium Chloride) 110 mls @ 660 mls/hr IV NOW ONE Stop: 02/07/19 07:54 Last Infusion: 02/07/19 16:47 Dose: 0 mls/hr Documented by: [id number] Admin: 02/07/19 09:09 Dose: 660 mls/hr Documented by: [id number] Sodium Chloride (Nss 1000ml) 1,000 mls @ 100 mls/hr IV .Q10H [facility] Stop: 02/08/19 06:00 Last Admin: 02/08/19 01:07 Dose: Not Given Documented by: [id number] Infusion: 02/08/19 00:23 Dose: 0 mls/hr Documented by: [id number] Admin: 02/07/19 14:45 Dose: 100 mls/hr Documented by: [id number] Cefazolin Sodium (Ancef 2000mg) 2,000 mg in 15 mls @ 3.75 mls/min IV Q8H CASSIE; Protocol Stop: 02/07/19 23:03 Last Admin: 02/07/19 22:14 Dose: 3.75 mls/min Documented by: [id number] Admin: 02/07/19 16:06 Dose: 3.75 mls/min Documented by: [id number] Insulin Human Regular 5 units/ (Syringe) 0.05 mls @ 0.05 mls/min IV NOW ONE Stop: 02/07/19 21:01 Last Admin: 02/07/19 21:39 Dose: 0.05 mls/min Documented by: [id number] Cosigned by: [id number] Insulin Aspart (Novolog Flexpen) 0 units SC TODAY@0000,0400 [facility] Stop: 02/08/19 04:01 Last Admin: 02/08/19 04:37 Dose: Not Given Documented by: [id number] Cosigned by: [id number] Admin: 02/08/19 00:11 Dose: Not Given Documented by: [id number] Cosigned by: [id number] Insulin Human NPH (Novolin N U-100 Nph Per Unit) 32 units SQ ONE ONE; Protocol Stop: 02/07/19 12:01 Last Admin: 02/07/19 13:36 Dose: 32 units Documented by: [id number] Cosigned by: [id number] Metoclopramide HCl (Reglan) 10 mg PO PREOP CASSIE Stop: 02/07/19 18:00 Last Admin: 02/07/19 06:13 Dose: 10 mg Documented by: [id number] Miscellaneous (Ortho Joint Anesthetic) Confirm Administered Dose 1 ea .ROUTE .STK-MED ONE Stop: 02/07/19 06:57 Last Admin: 02/07/19 08:02 Dose: Not Given Documented by: [id number] Miscellaneous (Insulin Protocol Goal Range) 1 ea N/A ONE ONE Stop: 02/07/19 20:41 Last Admin: 02/07/19 21:12 Dose: Not Given Documented by: [id number] ECG Rate (beats per minute): 63 Rhythm: normal sinus
--- NOTE | 2019-02-08 09:39 | Orthopedic Progress Note ---
Date of Service February 08, 2019 Assessment & Plan (1) Degenerative joint disease of right hip: s/p R anterior CORI POD#1 -ancef x 24 -DVT ppx: SCDs, TEDs, ASA 81mg BID -WBAT RLE -PT/OT -PO XR demonstrates a well aligned well fixed prosthesis without fracture/dislocation -am labs hgb 7.5, acute post op anemia secondary to I/O blood loss and dilutional effect, will transfuse 1 unit and recheck this afternoon, patient had elevated glucose last night, this am 124. Patient refusing insulin. We will consult med service for further inpatient co-mgnt. -DC planning Subjective Post Operative Progress Note Patient seen sitting up in bed, comfortable, denies complaints, pain well controlled, no acute issues. Admits to feeling lightheaded upon standing, otherwise, denies F/C/N/V/SOP and CP at this time. Review of Systems Review of Systems: All systems reviewed & are unremarkable except as noted in HPI & below Constitutional: as per Subjective / HPI Physical Exam Physical Exam: RLE NVSI +EHL/FHL/TA/GS SILT grossly, +2 DP pulse, compartments soft NT, dressing cdi. Results & Data Vital Signs (Past 12 Hours) Vital Signs Temp Pulse Resp BP Pulse Ox 02/08/19 07:01 36.8 C 69 16 105/56 L 95 02/08/19 04:05 36.6 C 74 16 107/60 97 02/08/19 00:01 36.7 C 67 16 104/61 95 Laboratory Results 02/08/19 02/08/19 02/08/19 Range/Units 08:14 05:17 05:17 WBC 14.95 H (4.8-10.8) K/uL RBC 2.48 L (4.7-6.1) M/uL Hgb 7.5 L (14.0-18.0) g/dL Hct 22.4 L (42-52) % MCV 90.3 (80-100) fL MCH 30.2 (25-34) pg MCHC 33.5 (32-36) g/dL RDW Std Deviation 43.7 (36.4-46.3) fL RDW Coeff of [place]iff[place] 13.3 (11.5-14.5) % Plt Count 233 (130-400) K/uL MPV 10.4 (7.4-10.4) fL Immature Gran % (Auto) 0.5 % Neut % (Auto) 73.8 % Lymph % (Auto) 12.2 % [place] % (Auto) 13.3 % Eos % (Auto) 0.1 % Baso % (Auto) 0.1 % Immature Gran # (Auto) 0.07 H (0.00-0.02) K/uL Neut # (Auto) 11.03 H (1.4-6.5) K/uL Lymph # (Auto) 1.83 (1.2-3.4) K/uL [place] # (Auto) 1.99 H (0.11-0.59) K/uL Eos # (Auto) 0.02 (0-0.5) K/uL Baso # (Auto) 0.01 (0-0.2) K/uL RBC Morphology Unremarkable Sodium 138 (136-145) mmol/L Potassium 4.0 (3.5-5.1) mmol/L Chloride 105 (98-107) mmol/L Carbon Dioxide 25 (21-32) mmol/L Anion Gap 8.0 (3-11) BUN 36 H (7-18) mg/dl Creatinine 1.40 (0.6-1.4) mg/dl Est Cr Clr Drug Dosing 50.0 ml/min Est GFR ( Amer) 56.2 Est GFR (Non-Af Amer) 48.5 BUN/Creatinine Ratio 25.8 H (10-20) Glucose 114 H (70-99) mg/dl POC Glucose 124 H (70-99) Calcium 7.9 L (8.5-10.1) mg/dl Blood Type Antibody Screen Crossmatch 02/08/19 02/08/19 02/08/19 Range/Units 04:07 01:06 00:35 WBC (4.8-10.8) K/uL RBC (4.7-6.1) M/uL Hgb (14.0-18.0) g/dL Hct (42-52) % MCV (80-100) fL MCH (25-34) pg MCHC (32-36) g/dL RDW Std Deviation (36.4-46.3) fL RDW Coeff of [place]iffanie (11.5-14.5) % Plt Count (130-400) K/uL MPV (7.4-10.4) fL Immature Gran % (Auto) % Neut % (Auto) % Lymph % (Auto) % [place] % (Auto) % Eos % (Auto) % Baso % (Auto) % Immature Gran # (Auto) (0.00-0.02) K/uL Neut # (Auto) (1.4-6.5) K/uL Lymph # (Auto) (1.2-3.4) K/uL [place] # (Auto) (0.11-0.59) K/uL Eos # (Auto) (0-0.5) K/uL Baso # (Auto) (0-0.2) K/uL RBC Morphology Sodium (136-145) mmol/L Potassium (3.5-5.1) mmol/L Chloride (98-107) mmol/L Carbon Dioxide (21-32) mmol/L Anion Gap (3-11) BUN (7-18) mg/dl Creatinine (0.6-1.4) mg/dl Est Cr Clr Drug Dosing ml/min Est GFR ( Amer) Est GFR (Non-Af Amer) BUN/Creatinine Ratio (10-20) Glucose (70-99) mg/dl POC Glucose 83 86 73 (70-99) Calcium (8.5-10.1) mg/dl Blood Type Antibody Screen Crossmatch 02/08/19 02/07/19 02/07/19 Range/Units 00:03 20:34 17:14 WBC (4.8-10.8) K/uL RBC (4.7-6.1) M/uL Hgb (14.0-18.0) g/dL Hct (42-52) % MCV (80-100) fL MCH (25-34) pg MCHC (32-36) g/dL RDW Std Deviation (36.4-46.3) fL RDW Coeff of [place]iffanie (11.5-14.5) % Plt Count (130-400) K/uL MPV (7.4-10.4) fL Immature Gran % (Auto) % Neut % (Auto) % Lymph % (Auto) % [place] % (Auto) % Eos % (Auto) % Baso % (Auto) % Immature Gran # (Auto) (0.00-0.02) K/uL Neut # (Auto) (1.4-6.5) K/uL Lymph # (Auto) (1.2-3.4) K/uL [place] # (Auto) (0.11-0.59) K/uL Eos # (Auto) (0-0.5) K/uL Baso # (Auto) (0-0.2) K/uL RBC Morphology Sodium (136-145) mmol/L Potassium (3.5-5.1) mmol/L Chloride (98-107) mmol/L Carbon Dioxide (21-32) mmol/L Anion Gap (3-11) BUN (7-18) mg/dl Creatinine (0.6-1.4) mg/dl Est Cr Clr Drug Dosing ml/min Est GFR ( Amer) Est GFR (Non-Af Amer) BUN/Creatinine Ratio (10-20) Glucose (70-99) mg/dl POC Glucose 66 L* 300 H 367 H* (70-99) Calcium (8.5-10.1) mg/dl Blood Type Antibody Screen Crossmatch 02/07/19 02/07/19 02/07/19 Range/Units 12:15 09:35 05:26 WBC (4.8-10.8) K/uL RBC (4.7-6.1) M/uL Hgb (14.0-18.0) g/dL Hct (42-52) % MCV (80-100) fL MCH (25-34) pg MCHC (32-36) g/dL RDW Std Deviation (36.4-46.3) fL RDW Coeff of Tiffanie (11.5-14.5) % Plt Count (130-400) K/uL MPV (7.4-10.4) fL Immature Gran % (Auto) % Neut % (Auto) % Lymph % (Auto) % [place] % (Auto) % Eos % (Auto) % Baso % (Auto) % Immature Gran # (Auto) (0.00-0.02) K/uL Neut # (Auto) (1.4-6.5) K/uL Lymph # (Auto) (1.2-3.4) K/uL [place] # (Auto) (0.11-0.59) K/uL Eos # (Auto) (0-0.5) K/uL Baso # (Auto) (0-0.2) K/uL RBC Morphology Sodium (136-145) mmol/L Potassium (3.5-5.1) mmol/L Chloride (98-107) mmol/L Carbon Dioxide (21-32) mmol/L Anion Gap (3-11) BUN (7-18) mg/dl Creatinine (0.6-1.4) mg/dl Est Cr Clr Drug Dosing ml/min Est GFR ( Amer) Est GFR (Non-Af Amer) BUN/Creatinine Ratio (10-20) Glucose (70-99) mg/dl POC Glucose 176 H 169 H (70-99) Calcium (8.5-10.1) mg/dl Blood Type O Positive Antibody Screen NEGATIVE Crossmatch See Detail
[2019-02-08] MEDS ORDERED: SODIUM CHLORIDE 0.9% 500 ML IV SCH (09:45)
--- NOTE | 2019-02-08 10:34 | Pharmacy Report ---
Pharmacy Glycemic Sign Off Nt - Date of Service February 08, 2019 - Assessment & Plan ASSESSMENT: * Pharmacy was consulted by Dr Lee on 02/07/19 for glycemic control and to write orders per [facility] inpatient glycemic control protocol. * Patient is refusing insulin at this time - home medications to be restarted (metformin for now) * Internal medicine consulted - confirmed with Payton Guerin PA-C that it is okay to d/c glycemic consult given patient's insulin refusal * Do not anticipate further changes in patient status that would quickly deteriorate glycemic control (i.e. patient to be NPO for upcoming procedure, steroids tapering, starting tube feedings, etc). * Please see recommendations for outpatient antidiabetic regimen below. PLAN FOR INPATIENT GLYCEMIC CONTROL: No changes needed to current regimen. Metformin 1 g PO BIDM for now. Glimepiride 2 mg PO daily on hold. Correctional Novolog still on board with a CF of 25 mg/dL/unit in the case that patient allows for insulin to be administered. * Pharmacy is signing off of glycemic consult and will no longer be making adjustments to inpatient regimen. Please feel free to re-consult if needed. Thank you. DISCHARGE RECOMMENDATIONS: * A1c 6.8 % on (01/09/19) * A1c well-controlled with glimepiride 2 mg PO daily and metformin 1 g PO BIDM - reasonable to continue home regimen at discharge.
[2019-02-08] MEDS: SIMVASTATIN 20 MG TAB PO SCH (21:20)
[2019-02-08] MEDS: OXYCODONE HCL IR 5 MG TAB (IMMEDIATE RELEASE) PO PRN (21:20)
[2019-02-08] MEDS: SENNA 8.6 MG TAB PO SCH (21:21)
[2019-02-09] MEDS: ACETAMINOPHEN 500 MG TAB PO SCH (05:26)
[2019-02-09] MEDS: OXYCODONE HCL IR 5 MG TAB (IMMEDIATE RELEASE) PO PRN (05:29)
[2019-02-09 05:57] LABS: Basophils # (auto) 0.05 K/uL (0-0.2); Basophils % (auto) 0.5 %; Eosinophils # (auto) 0.15 K/uL (0-0.5); Eosinophils % (auto) 1.4 %; Hematocrit (blood only) 24.2 % (42-52); Hemoglobin 8.1 g/dL (14.0-18.0); Immature Granulocytes # (auto) 0.04 K/uL (0.00-0.02); Immature Granulocytes % (auto) 0.4 %; Lymphocytes # (auto) 2.04 K/uL (1.2-3.4); Lymphocytes % (auto) 19.6 %; Mean Corpuscular Hemoglobin 30.8 pg (25-34); Mean Corpuscular Hgb Conc 33.5 g/dL (32-36); Mean Platelet Volume 10.8 fL (7.4-10.4); Monocytes # (auto) 1.64 K/uL (0.11-0.59); Monocytes % (auto) 15.8 %; Neutrophils # (auto) 6.49 K/uL (1.4-6.5); Neutrophils % (auto) 62.3 %; Platelet Count 239 K/uL (130-400); RDW Coefficient of Variation 13.8 % (11.5-14.5); RDW Standard Deviation 46.4 fL (36.4-46.3); Red Blood Count 2.63 M/uL (4.7-6.1); White Blood Count 10.41 K/uL (4.8-10.8)
[2019-02-09 06:26] LABS: BUN Creatinine Ratio 24.2 (10-20); Calcium 8.4 mg/dl (8.5-10.1); Creatinine Clr Calc Pharmacy 59.8 ml/min; Est GFR (African American) 69.8; Est GFR (Non-African American) 60.2; Potassium 4.3 mmol/L (3.5-5.1)
[2019-02-09] MEDS: METFORMIN HCL 500 MG TAB PO SCH (07:10)
[2019-02-09] MEDS: ASPIRIN 81 MG ECTAB PO SCH (07:10)
[2019-02-09] MEDS: MULTIVITAMIN TAB PO SCH (07:11)
[2019-02-09] MEDS: INSULIN ASPART 100 UNITS/ML 3 ML PEN SC SCH (07:11)
[2019-02-09] MEDS: DOCUSATE SODIUM 100 MG CAP PO SCH (07:11)
[2019-02-09] MEDS ORDERED: METFORMIN HCL 500 MG TAB PO SCH (08:00)
[2019-02-09] MEDS ORDERED: GLIMEPIRIDE 2 MG TAB PO SCH (09:00)
--- NOTE | 2019-02-09 09:02 | Hospitalist Progress Note ---
Date of Service February 09, 2019 Assessment & Plan (1) Degenerative joint disease of right hip: POD #[address] Lee EBL 225ml tolerated procedure well pain/wound management per ortho activity and therapy as directed by ortho incentive spirometry ASA bid for dvt prophylaxis per ortho (2) Diabetes mellitus, type 2: A1C 6.9 hyperglycemic post operatively 2/2 steroid pt refusing any future insulin re-initiate metformin and glimepiride Cr 1.17 today (3) Anemia: 2/2 to post op state received 1 unit PRBC ordered H/H 8.1/24.[address] Lee to have H/H in 4 days as outpt (4) CKD (chronic kidney disease) stage 3, GFR 30-59 ml/min: mild renal insufficiency baseline cr 1.2 bun/cr peaked 36/1.40 likely in setting of post op state, abl anemia s/p 1 unit PRBC/ 500ml IVF improved to 1.17 today (5) Hypertension: controlled resume irbesartan as outpt (6) Hyperlipidemia: continue statin (7) DVT prophylaxis: SCD/TEDS, ASA BID per ortho Disposition: per primary service, likely discharge today Follow up: PCP Dr. Oconnor upon discharge Patient was seen and examined in collaboration with Dr. Avila, please see addendum Supervising Physician Co-Signing Physician Notes Attending Addendum: care coordinated with ALLEN Mir please refer to her notes for full details, I agree with her notes patient not seen, he just left when I arrived in his room ASSESSMENT AND PLAN DM 2 resume oral DM meds Anemia likely acute blood loss from surgery monitor H&H as outpatient other diagnoses and plan of care as per ALLEN Mir notes Daquan Yoder MD Subjective Patient seen and examined in room 301. Follow-up right CORI and diabetes. Patient is doing well this morning. He is upset because apparently he was offered insulin last evening. Also upset because he was told he was not being discharged yesterday, and states this was never communicated to him. He overall otherwise feels well this morning. Denies fever, chills, sweats, lightheadedness, dizziness, chest pain or shortness of breath, nausea, vomiting, diarrhea. He had 2 BMs this morning. Passing urine without difficulty. Good appetite. Review of Systems Review of Systems: All systems reviewed & are unremarkable except as noted in HPI & below Physical Exam Physical Exam: Gen: WD/WN, M, sitting up in bed, NAD, A&O x3 HEENT: Normocephalic, atraumatic, conjunctivae moist, sclerae anicteric, mucous membranes moist. Lung: Clear to Auscultation bilaterally, no wheezes/rales/rhonchi Heart: Regular rate, regular rhythm, no murmurs, rubs, or gallops Abdomen: Soft, NT, ND +BS x 4 Extremities: No edema, R CORI dressing CDI Skin: Warm, no rash, negative turgor. Results & Data Vital Signs (Past 12 Hours) Vital Signs Temp Pulse Resp BP Pulse Ox 02/09/19 06:36 36.8 C 80 16 116/65 93 02/08/19 23:04 36.3 C L 73 16 124/69 96 Laboratory Results Short CBC 01/09/19 02/08/19 02/09/19 Range/Units 11:25 05:17 05:15 WBC 10.41 (4.8-10.8) K/uL Hgb 8.1 L (14.0-18.0) g/dL Hct 24.2 L (42-52) % Plt Count 239 (130-400) K/uL Creatinine 1.24 1.40 (0.6-1.4) mg/dl 02/09/19 Range/Units 05:15 WBC (4.8-10.8) K/uL Hgb (14.0-18.0) g/dL Hct (42-52) % Plt Count (130-400) K/uL Creatinine 1.17 (0.6-1.4) mg/dl BMP 02/09/19 05:15 Sodium 140 Potassium 4.3 Chloride 108 H Carbon Dioxide 25 BUN 28 H Creatinine 1.17 Glucose 89 Calcium 8.4 L Medications Administered Acetaminophen (Tylenol) 1,000 mg PO Q8 [facility] Stop: 03/09/19 13:59 Last Admin: 02/09/19 05:26 Dose: 1,000 mg Documented by: [id number] Admin: 02/08/19 21:20 Dose: 1,000 mg Documented by: [id number] Admin: 02/08/19 14:15 Dose: 1,000 mg Documented by: [id number] Admin: 02/08/19 05:44 Dose: 1,000 mg Documented by: [id number] Admin: 02/07/19 21:17 Dose: 1,000 mg Documented by: [id number] Admin: 02/07/19 13:41 Dose: 1,000 mg Documented by: [id number] Aspirin (Ecotrin Ectab) 81 mg PO BID [facility] Stop: 03/10/19 08:59 Last Admin: 02/09/19 07:10 Dose: 81 mg Documented by: [id number] Admin: 02/08/19 21:20 Dose: 81 mg Documented by: [id number] Admin: 02/08/19 07:26 Dose: 81 mg Documented by: [id number] Docusate Sodium (Colace) 100 mg PO BID [facility] Stop: 03/09/19 20:59 Last Admin: 02/09/19 07:11 Dose: Not Given Documented by: [id number] Admin: 02/08/19 21:21 Dose: Not Given Documented by: [id number] Admin: 02/08/19 07:26 Dose: 100 mg Documented by: [id number] Admin: 02/07/19 21:18 Dose: 100 mg Documented by: [id number] Glimepiride (Amaryl) 2 mg PO QAM [facility] Stop: 03/11/19 08:59 Last Admin: 02/09/19 07:11 Dose: Not Given Documented by: [id number] Insulin Aspart (Novolog Flexpen) 0 units SC ACHS [facility] Stop: 03/10/19 20:59 Last Admin: 02/09/19 07:11 Dose: Not Given Documented by: [id number] Cosigned by: [id number] Admin: 02/08/19 21:35 Dose: Not Given Documented by: [id number] Cosigned by: [id number] Irbesartan (Avapro) 300 mg PO QPM [facility] Stop: 03/09/19 20:59 Last Admin: 02/07/19 21:16 Dose: Not Given Documented by: [id number] Metformin HCl (Glucophage) 1,000 mg PO BIDM [facility] Stop: 03/10/19 08:59 Last Admin: 02/09/19 07:10 Dose: 1,000 mg Documented by: [id number] Admin: 02/08/19 17:54 Dose: 1,000 mg Documented by: [id number] Admin: 02/08/19 09:16 Dose: 1,000 mg Documented by: [id number] Miscellaneous (Carbohydrates For Hypoglycemia) 15 - 30 gm PO UD PRN PRN Reason: Hypoglycemia Treatment Stop: 03/10/19 00:29 Last Admin: 02/08/19 00:20 Dose: 15 gm Documented by: [id number] Multivitamins (Multivitamin Tab) 1 tab PO QAM [facility] Stop: 03/10/19 08:59 Last Admin: 02/09/19 07:11 Dose: 1 tab Documented by: [id number] Admin: 02/08/19 07:26 Dose: 1 tab Documented by: [id number] Oxycodone HCl (Roxicodone Immediate Rel) 5 - 10 mg PO Q4H PRN PRN Reason: Pain Stop: 02/21/19 10:58 Last Admin: 02/09/19 05:29 Dose: 5 mg Documented by: [id number] Admin: 02/08/19 21:20 Dose: 5 mg Documented by: [id number] Admin: 02/07/19 21:18 Dose: 5 mg Documented by: [id number] Admin: 02/07/19 16:06 Dose: 5 mg Documented by: [id number] Sennosides (Senokot) 17.2 mg PO HS [facility] Stop: 03/09/19 20:59 Last Admin: 02/08/19 21:21 Dose: Not Given Documented by: [id number] Admin: 02/07/19 21:18 Dose: 17.2 mg Documented by: [id number] Simvastatin (Zocor) 20 mg PO PM [facility] Stop: 03/09/19 20:59 Last Admin: 02/08/19 21:20 Dose: 20 mg Documented by: [id number] Admin: 02/07/19 21:18 Dose: 20 mg Documented by: [id number] Discontinued Medications Acetaminophen (Tylenol) 1,000 mg PO PREOP [facility] Stop: 02/07/19 18:00 Last Admin: 02/07/19 06:13 Dose: 1,000 mg Documented by: [id number] Bacitracin (Bacitracin) Confirm Administered Dose 50,000 units .ROUTE .STK-MED ONE Stop: 02/07/19 06:57 Last Admin: 02/07/19 08:03 Dose: 50,000 units Documented by: [id number] Celecoxib (Celebrex) 200 mg PO PREOP [facility] Stop: 02/07/19 18:00 Last Admin: 02/07/19 06:13 Dose: 200 mg Documented by: [id number] Dexamethasone (Decadron) 8 mg PO PREOP [facility] Stop: 02/07/19 18:00 Last Admin: 02/07/19 06:13 Dose: 8 mg Documented by: [id number] Diphenhydramine HCl (Benadryl) 25 mg IV PRE-TREAT [facility] Stop: 02/08/19 16:00 Last Admin: 02/08/19 09:25 Dose: 25 mg Documented by: [id number] Famotidine (Pepcid) 20 mg PO PREOP [facility] Stop: 02/07/19 18:00 Last Admin: 02/07/19 06:13 Dose: 20 mg Documented by: [id number] Gabapentin (Neurontin) 300 mg PO PREOP [facility] Stop: 02/07/19 18:00 Last Admin: 02/07/19 06:13 Dose: 300 mg Documented by: [id number] Glimepiride (Amaryl) 2 mg PO DAILY [facility] Stop: 03/10/19 08:59 Last Admin: 02/08/19 09:33 Dose: Not Given Documented by: [id number] Lactated Ringer's (Lr) 1,000 mls @ 15 mls/hr IV .Q24H [facility] Stop: 02/07/19 18:00 Last Infusion: 02/07/19 07:12 Dose: 0 mls/hr Documented by: [id number] Admin: 02/07/19 06:12 Dose: 1,000 mls/hr Documented by: [id number] Cefazolin Sodium (Ancef 2000mg) 2,000 mg in 15 mls @ 3.75 mls/min IV PREOP [facility]SIE; Protocol Stop: 02/07/19 18:00 Last Admin: 02/07/19 07:12 Dose: 3.75 mls/min Documented by: [id number] Ropivacaine 150 mg/Bupivacaine HCl 30 ml/Epinephrine HCl 0.15 mg/Ketorolac Tromethamine 30 mg/Dexamethasone 4 mg/ Ketamine HCl 10 mg/ Clonidine HCl 100 mcg/ Sodium Chloride 93.35 mls @ 0 mls/hr INSTIL PREOP [facility] Stop: 02/07/19 06:01 Last Admin: 02/07/19 09:00 Dose: 93.35 mls/hr Documented by: [id number] Tranexamic Acid 1,000 mg/ (Sodium Chloride) 110 mls @ 660 mls/hr IV NOW ONE Stop: 02/07/19 07:54 Last Infusion: 02/07/19 16:47 Dose: 0 mls/hr Documented by: [id number] Admin: 02/07/19 07:51 Dose: 660 mls/hr Documented by: [id number] Tranexamic Acid 1,000 mg/ (Sodium Chloride) 110 mls @ 660 mls/hr IV NOW ONE Stop: 02/07/19 07:54 Last Infusion: 02/07/19 16:47 Dose: 0 mls/hr Documented by: [id number] Admin: 02/07/19 09:09 Dose: 660 mls/hr Documented by: [id number] Sodium Chloride (Nss 1000ml) 1,000 mls @ 100 mls/hr IV .Q10H [facility] Stop: 02/08/19 06:00 Last Admin: 02/08/19 01:07 Dose: Not Given Documented by: [id number] Infusion: 02/08/19 00:23 Dose: 0 mls/hr Documented by: [id number] Admin: 02/07/19 14:45 Dose: 100 mls/hr Documented by: [id number] Cefazolin Sodium (Ancef 2000mg) 2,000 mg in 15 mls @ 3.75 mls/min IV Q8H [facility]SIE; Protocol Stop: 02/07/19 23:03 Last Admin: 02/07/19 22:14 Dose: 3.75 mls/min Documented by: [id number] Admin: 02/07/19 16:06 Dose: 3.75 mls/min Documented by: [id number] Insulin Human Regular 5 units/ (Syringe) 0.05 mls @ 0.05 mls/min IV NOW ONE Stop: 02/07/19 21:01 Last Admin: 02/07/19 21:39 Dose: 0.05 mls/min Documented by: [id number] Cosigned by: [id number] Sodium Chloride (Nss) 500 mls @ 125 mls/hr IV .Q4H [facility] Stop: 02/08/19 13:44 Last Infusion: 02/08/19 16:18 Dose: 0 mls/hr Documented by: [id number] Admin: 02/08/19 12:17 Dose: 125 mls/hr Documented by: [id number] Insulin Aspart (Novolog Flexpen) 0 units SC ACHS [facility] Stop: 03/09/19 11:29 Last Admin: 02/08/19 18:35 Dose: Not Given Documented by: [id number] Cosigned by: [id number] Admin: 02/08/19 13:54 Dose: Not Given Documented by: [id number] Admin: 02/08/19 07:46 Dose: Not Given Documented by: [id number] Admin: 02/07/19 21:39 Dose: 8 units Documented by: [id number] Cosigned by: [id number] Admin: 02/07/19 17:48 Dose: 20 units Documented by: [id number] Cosigned by: [id number] Admin: 02/07/19 13:40 Dose: 9 units Documented by: [id number] Cosigned by: [id number] Insulin Aspart (Novolog Flexpen) 0 units SC TODAY@0000,0400 [facility] Stop: 02/08/19 04:01 Last Admin: 02/08/19 04:37 Dose: Not Given Documented by: [id number] Cosigned by: [id number] Admin: 02/08/19 00:11 Dose: Not Given Documented by: [id number] Cosigned by: [id number] Insulin Human NPH (Novolin N U-100 Nph Per Unit) 32 units SQ ONE ONE; Protocol Stop: 02/07/19 12:01 Last Admin: 02/07/19 13:36 Dose: 32 units Documented by: [id number] Cosigned by: [id number] Metoclopramide HCl (Reglan) 10 mg PO PREOP [facility]E Stop: 02/07/19 18:00 Last Admin: 02/07/19 06:13 Dose: 10 mg Documented by: [id number] Miscellaneous (Ortho Joint Anesthetic) Confirm Administered Dose 1 ea .ROUTE .STK-MED ONE Stop: 02/07/19 06:57 Last Admin: 02/07/19 08:02 Dose: Not Given Documented by: [id number] Miscellaneous (Insulin Protocol Goal Range) 1 ea N/A ONE ONE Stop: 02/07/19 20:41 Last Admin: 02/07/19 21:12 Dose: Not Given Documented by: [id number]
--- NOTE | 2019-02-09 11:12 | Orthopedic Progress Note ---
Date of Service February 09, 2019 Assessment & Plan (1) Degenerative joint disease of right hip: s/p R anterior CORI POD#2 -ancef x 24 -DVT ppx: SCDs, TEDs, ASA 81mg BID -WBAT RLE -PT/OT -PO XR demonstrates a well aligned well fixed prosthesis without fracture/dislocation -am labs hgb 8.1, acute post op anemia secondary to I/O blood loss and dilutional effect. 1 unit of PRBCs transfused yesterday. Patient remaining asymptomatic today. Plan for hemoglobin recheck next Wednesday as outpatient. -DC planning-plan for discharge to home today. Supervising Physician Co-Signing Physician Notes The patient was seen and examined this morning, agree with above assessment and plan. Hemoglobin 8.1 today, patient asymptomatic and vital signs stable. We will recheck CBC 4 days post discharge and request the patient follow-up with the PCP within 1 week. Subjective Postop day 2 status post right total hip arthroplasty. Patient remaining stable. Sitting in his chair at the bedside. No new complaints. Pain is controlled. Progressing well with his physical therapy. Review of Systems Review of Systems: All systems reviewed & are unremarkable except as noted in HPI & below Constitutional: as per Subjective / HPI Physical Exam Physical Exam: Dressings intact. Hip appears located. Neurovascular is intact. RLE NVSI +EHL/FHL/TA/GS SILT grossly, +2 DP pulse, compartments soft NT, dressing cdi. Constitutional: WD/WN, vitals as above Results & Data Vital Signs (Past 12 Hours) Vital Signs Temp Pulse Resp BP Pulse Ox 02/09/19 06:36 36.8 C 80 16 116/65 93 Laboratory Results Laboratory Results WBC 10.41 K/uL (4.8-10.8) 02/09/19 05:15 RBC 2.63 M/uL (4.7-6.1) L 02/09/19 05:15 Hgb 8.1 g/dL (14.0-18.0) L 02/09/19 05:15 Hct 24.2 % (42-52) L 02/09/19 05:15 MCV 92.0 fL (80-100) 02/09/19 05:15 MCH 30.8 pg (25-34) 02/09/19 05:15 MCHC 33.5 g/dL (32-36) 02/09/19 05:15 RDW Std Deviation 46.4 fL (36.4-46.3) H 02/09/19 05:15 RDW Coeff of [place] 13.8 % (11.5-14.5) 02/09/19 05:15 Plt Count 239 K/uL (130-400) 02/09/19 05:15 MPV 10.8 fL (7.4-10.4) H 02/09/19 05:15 Immature Gran % (Auto) 0.4 % 02/09/19 05:15 Neut % (Auto) 62.3 % 02/09/19 05:15 Lymph % (Auto) 19.6 % 02/09/19 05:15 [place] % (Auto) 15.8 % 02/09/19 05:15 Eos % (Auto) 1.4 % 02/09/19 05:15 Baso % (Auto) 0.5 % 02/09/19 05:15 Immature Gran # (Auto) 0.04 K/uL (0.00-0.02) H 02/09/19 05:15 Neut # (Auto) 6.49 K/uL (1.4-6.5) 02/09/19 05:15 Lymph # (Auto) 2.04 K/uL (1.2-3.4) 02/09/19 05:15 [place] # (Auto) 1.64 K/uL (0.11-0.59) H 02/09/19 05:15 Eos # (Auto) 0.15 K/uL (0-0.5) 02/09/19 05:15 Baso # (Auto) 0.05 K/uL (0-0.2) 02/09/19 05:15 RBC Morphology Unremarkable 02/08/19 05:17 PT 10.2 Seconds (9.0-12.0) 01/09/19 11:25 INR 1.0 (0.9-1.1) 01/09/19 11:25 APTT 26.5 Seconds (21.0-31.0) 01/09/19 11:25 PTT Ratio 1.0 01/09/19 11:25 Sodium 140 mmol/L (136-145) 02/09/19 05:15 Potassium 4.3 mmol/L (3.5-5.1) 02/09/19 05:15 Chloride 108 mmol/L (98-107) H 02/09/19 05:15 Carbon Dioxide 25 mmol/L (21-32) 02/09/19 05:15 Anion Gap 7.0 (3-11) 02/09/19 05:15 BUN 28 mg/dl (7-18) H 02/09/19 05:15 Creatinine 1.17 mg/dl (0.6-1.4) 02/09/19 05:15 Est Cr Clr Drug Dosing 59.8 ml/min 02/09/19 05:15 Est GFR ( Amer) 69.8 02/09/19 05:15 Est GFR (Non-Af Amer) 60.2 02/09/19 05:15 BUN/Creatinine Ratio 24.2 (10-20) H 02/09/19 05:15 Glucose 89 mg/dl (70-99) 02/09/19 05:15 POC Glucose 95 (70-99) 02/09/19 06:35 Estimat Average Glucose 148 mg/dl 01/09/19 11:25 Hemoglobin A1c 6.8 % (4.5-5.6) H 01/09/19 11:25 Calcium 8.4 mg/dl (8.5-10.1) L 02/09/19 05:15 Albumin 4.2 gm/dl (3.4-5.0) 01/09/19 11:25 Urine Color Yellow 01/09/19 11:25 Urine Appearance Clear (Clear) 01/09/19 11:25 Urine pH 5.0 (4.5-7.5) 01/09/19 11:25 Ur Specific [place] 1.020 (1.000-1.030) 01/09/19 11:25 Urine Protein 1+ (Negative) H 01/09/19 11:25 Urine Glucose (UA) Negative (Negative) 01/09/19 11:25 Urine Ketones Trace (Negative) H 01/09/19 11:25 Urine Blood Negative (Negative) 01/09/19 11:25 Urine Nitrite Negative (Negative) 01/09/19 11:25 Urine Bilirubin Negative (Negative) 01/09/19 11:25 Urine Urobilinogen Negative (Negative) 01/09/19 11:25 Ur Leukocyte Esterase Negative (Negative) 01/09/19 11:25 Urine WBC (Auto) 1-5 /hpf (0-5) 01/09/19 11:25 Urine RBC (Auto) 0-4 /hpf (0-4) 01/09/19 11:25 U Hyaline Cast (Auto) 0 /lpf (0-5) 01/09/19 11:25 U Epithel Cells (Auto) 5-10 /lpf (0-5) H 01/09/19 11:25 Urine Bacteria (Auto) Negative (Negative) 01/09/19 11:25 Blood Type O Positive 02/07/19 05:26 Antibody Screen NEGATIVE 02/07/19 05:26 Crossmatch See Detail 02/07/19 05:26
--- NOTE | 2019-02-12 11:51 | Discharge Summary ---
Date of Service February 12, 2019 Admission HPI Per Admitting Provider The patient is a 78 year old male who presents with complaints of severe right hip pain and DJD. The patient has failed outpatient conservative treatments to this point which included NSAIDs, IA corticosteroid inj, home exercise/walking program. The patient's pain and limited function have progressed to the point where they severely hinder their activities of daily living and they no longer tolerate exercise programs. They are requesting to proceed with total hip replacement surgery. Principal Diagnosis Right anterior total hip replacement Discharge Exam RLE NVSI +EHL/FHL/TA/GS SILT grossly, +2 DP pulse, compartments soft NT, dressing cdi. Constitutional WD/WN, vitals as above Discharge Data Allergies Allergy/AdvReac Type Severity Reaction Status Date / Time No Known Allergies Allergy Verified 02/07/19 05:31 Consultations 02/08/19 07:56 Consult Hospitalist Routine 02/08/19 08:00 Consult Case Management - Discharge Planning Routine Procedures Performed Operation Date: 02/07/19 07:15 Actual Procedures p Right Anterior Total Hip Arthroplasty(Right) - Floyd Lee DO Ordered Studies 02/07/19 07:15 FL fluoroscopy <1hr Routine FL hip RT 1V Routine Hospital Course (1) Degenerative joint disease of right hip: The patient is a 78 -year-old male who presents with long standing history of severe right hip DJD and failed outpatient conservative treatments including NSAIDs, bracing, injections and home walking/exercise program. The patient's symptoms have progressed to the point where it has been difficult to perform even normal activities of daily living. I indicated the patient for a right anterior total hip arthroplasty, the risks, benefits and complications of the procedure include but not limited to infection, bleeding, damage to bone, nerves, vessels, surrounding soft tissue, may develop blood clots, loss of function, leg length discrepancy, dislocation, failure of the components, loosening of the components, the need for additional surgery and . The patient wished to proceed with surgery at this time and informed consent was obtained. Hospital Course: On 02/07/19 the patient was taken to the operating room, adequate anesthesia administered and underwent a right anterior total hip arthroplasty. The patient tolerated the procedure well and was taken to the PACU in stable condition. Post-operatively the patient was started on a DVT ppx medication and given appropriate IV antibiotics. Consults were placed to medical hospitalist group, physical therapy, occupational therapy and case management. On POD#1, the patient did well overnight and their pain was well controlled. Labs were drawn and the Hgb was 7.5. The patient reported mild lightheaded upon standing overnight. VSS. 1 unit of PRBC was transfused. The patient progressed well with PT. Dressings were changed at this time and the incision was clean, dry and intact. On POD#2, The patient continued to progress with PT, pain controlled. Repeat labs drawn with hgb 8.1. Patient denied any lightheaded, SOB, CP. The patients hospital stay was relatively uneventful and they were deemed stable by the orthopedic team and consultants to be discharged home with on 02/09/19. Discharge Instructions: Upon discharge the patient may weight bear as tolerates through their operative extremity. They were instructed to keep the incision clean and dry at all times. The patient may shower but should not submerge the incision, avoid bathing, pools and hot tubes. The patient was given a script for pain medication and should take as instructed. The patient was given a script for DVT ppx 81mg ASA BID and should take as directed. The patient was instructed to not drive or travel for long distances until cleared to do so. If the patient develops any symptoms of fevers, chills, nausea, vomiting, increased redness, swelling, pain or drainage from the surgical site, they should notify the office and/or proceed to the nearest emergency room. The patient should follow up in 10-14 days after surgery for their routine post-operative follow-up appointment and should call the office to confirm the date and time. Repeat lab draw order provided for CBC. Patient instructed to follow up with PCP within 1 week of discharge. s/p R anterior CORI POD#2 -ancef x 24 -DVT ppx: SCDs, TEDs, ASA 81mg BID -WBAT RLE -PT/OT -PO XR demonstrates a well aligned well fixed prosthesis without fracture/dislocation -am labs hgb 8.1, acute post op anemia secondary to I/O blood loss and dilutional effect. 1 unit of PRBCs transfused yesterday. Patient remaining asymptomatic today. Plan for hemoglobin recheck next Wednesday as outpatient. -DC planning-plan for discharge to home today. Total Time Total Time Spent Total Time Spent (In Minutes): 60 minutes Total Time Includes: Examination of the Patient, Discharge Planning, Medication Reconciliation and Communication With Other Providers Discharge Plan Discharge Items Patient Disposition: Home - Home Health Services Reason For Visit: RIGHT HIP OSTEOARTHRITIS Discharge Diagnosis: Right anterior total hip replacement Condition on Discharge: Good Activity: Per Instructions section Lifting: Wait until after follow-up appointment Bathing Comment: No bathing, pools or hot tubs. Sexual Activity: Wait until after follow-up appointment Exercise/Sports: Wait until after follow-up appointment Driving/Machine Use: No driving till cleared by your surgeon Weightbearing: Right weightbearing Non-emergency contact: Primary Care Provider and Surgeon Call non-emergency contact if: you have any medication questions, your symptoms worsen, your pain is not controlled, your pain is worsening, your pain is unusual for you, your pain is concerning for you, you have a fever, your temperature is above 101, your wound has increased redness, your wound has increased drainage and your wound pain has increased Follow-up/Referrals: Armin Oconnor MD [Primary Care Provider] - Diet: Carb Consistent or DM2 Ambulatory Orders: Complete Blood Count no Diff (Timed) Timeframe: 20190213 Location: Determined by Patient Ordered By: Floyd Lee Hemoglobin (Routine) Timeframe: 20190213 Location: Determined by Patient Ordered By: Willy Escobedo Attending Provider Instructions: ACTIVITY RECOMMENDATIONS: SELF CARE INSTRUCTIONS AFTER TOTAL HIP REPLACEMENT : Direct Anterior Approach Until the incision and soft tissues around your hip have healed, there is a possibility that the hip prosthesis could dislocate. A. Hip flexion ( Up & Down out of chair or steps ) may be difficult. This is normal. B. Numbness in front of the thigh is also normal for a few weeks. C. Use hand rails when walking on stairs. D. Wear low heeled shoes with non-slip soles. E. Be sure that your floors are free of things that could trip you - throw rugs, electrical cords, small objects. Avoid wet and waxed floors, especially with crutches and canes. F. Try to walk several times a day with rest periods between. G. Continue with all the exercises taught to you in the hospital. Again, make walking a part of your daily routine. SPECIAL CARE INSTRUCTIONS: VERY IMPORTANT TO READ AND REVIEW A. You may still be at risk for phlebitis and blood clots. 1. Wear surgical stockings (SULTANA hose) for 2 weeks after surgery to improve circulation and reduce swelling. 2. Take Aspirin 81mg twice daily for 4 weeks or as directed by your doctor. This is your blood thinner. 3. High risk patients may be prescribed a stronger blood thinner if necessary. 4. If you are on Coumadin normally, your family doctor/indian trader should monitor your blood work. Expect a phone call the day of or the day after bloodwork is drawn to adjust your dosage. B. You must take antibiotics before having dental work, bladder, bowel and other surgery. Your doctor will provide you with a permanent card to carry describing precautions. C. Call [facility] if you have a fever, redness or swelling around the incision, cloudy drainage from incision, or sudden increase in pain in your hip, not relieved by your regular pain medication. D. Please call the office at if you have any concerns or questions about your operation or recovery. * YOU MAY SHOWER, NO TUB BATHS UNTIL CLEARED BY YOUR DOCTOR. - Keep an extra close eye on the top portion of your incision. Be sure to keep clean & dry. * WEAR SULTANA HOSE 20 HOURS PER DAY FOR 2 WEEKS. * YOU MAY PROGRESS FROM A WALKER, TO A CANE, TO INDEPENDENT AT YOUR OWN PACE. * MOST PATIENTS WILL HAVE HOME NURSING FOR THERAPY. IF YOU DECIDE TO DO OUTPATIENT PHYSICAL THERAPY, PLEASE SCHEDULE THIS 3 TIMES PER WEEK. * DERMABOND Prineo- This is a mesh tape dressing that is covered with glue. It should remain in place until the incision is properly healed, usually 10-14 days. This dressing is designed to naturally slough off. You may trim the excess mesh tape as it peels off. Incision may be briefly wet in a shower. Dry immediately by blotting with a clean, dry towel. Do not bath or swim until instructed by your doctor. Do not scratch, rub, or pick at the dressing. Do not apply any topical ointments or lotions until dressing is completely removed and/or instructed by your doctor. There may be a small piece of suture material at one end of your incision. Do not pull or trim this. If it is bothersome or catching on clothing, you may cover it with a band-aid. FOLLOW UP VISIT: If appointment is not already scheduled: Please call [facility] to make a follow-up appointment for 2 weeks after your surgery at . Follow up PCP 1 week from Discharge Lab order given for repeat CBC Pending Studies at Discharge: No Stand-Alone Forms: My [facility] Medications and DC Order Prescriptions: New aspirin [Ecotrin Low Strength] 81 mg Tablet,Delayed Release (Dr/Ec) 81 mg PO BID Qty: 56 RF: 0 acetaminophen [Tylenol Extra Strength] 500 mg Tablet 1,000 mg PO Q8 PRN (Reason: pain and/or fever) Qty: 90 RF: 0 oxycodone 5 mg Tablet 5 mg PO Q6H MDD 6 tabs PRN (Reason: pain) Qty: 30 RF: 0 sennosides [Senokot] 8.6 mg Tablet 17.2 mg PO HS PRN (Reason: constipation) Qty: 28 RF: 0 Continued celecoxib [Celebrex] 200 mg Capsule 200 mg PO BID RF: 0 glimepiride 2 mg Tablet 2 mg PO QAM RF: 0 simvastatin 20 mg Tablet 20 mg PO PM RF: 0 metformin 1,000 mg Tablet 1,000 mg PO BIDM RF: 0 irbesartan 300 mg Tablet 300 mg PO QPM RF: 0 Discharge Orders: Discharge Order (Routine); Ordered 02/09/19 Ordered By: Willy Marsh Admission Data Admit Date/Time: 02/07/19 09:42 Attending Provider: Floyd Lee Admit Provider: Floyd Lee Primary Care Provider: Armin Oconnor Other Providers: Gibran Villagomez ; Daquan Yoder Other Interventions: Discharge Summary Assessment (RN) Last Done: 02/09/19 11:43 DC Date/Time DO NOT enter until pt leaves facility: 02/09/19 11:43
== END 2019-02-09 11:43 | disposition home health service (06) | DRG 470 ==
LOC: ASU 05:07 → 3E 09:42
DX: T38.0X5A Adverse effect of glucocorticoids and synthetic analogues, initial encounter; I12.9 Hypertensive chronic kidney disease with stage 1 through stage 4 chronic kidney disease, or unspecified chronic kidney disease; D62 Acute posthemorrhagic anemia; E78.5 Hyperlipidemia, unspecified; N18.3 Chronic kidney disease, stage 3 (moderate); R73.9 Hyperglycemia, unspecified; Z79.84 Long term (current) use of oral hypoglycemic drugs; M16.11 Unilateral primary osteoarthritis, right hip; Y92.239 Unspecified place in hospital as the place of occurrence of the external cause; E11.319 Type 2 diabetes mellitus with unspecified diabetic retinopathy without macular edema